=== PATIENT | female | born 1960 | race Caucasian/White ===

== ENCOUNTER 2024-01-23 16:05 | Emergency (ER) | payer MEDICARE, BC ==
[2024-01-23 16:35] VITALS: BP 160/88; O2SAT 95
--- NOTE | 2024-01-23 16:51 | ED Physician Documentation ---
History of Present Illness - Stated complaint Stated Complaint: FALL - Chief complaint Chief Complaint: Trauma Abd - History obtained from History obtained from: Patient - Additonal information Additional information: 63-year-old female presents after fall. Patient was at the grocery store, and was grabbing a 6 pack of beer, and then turned to go to the register and tripped over some inventory that was on the floor that she did not previously see. She fell on to the floor, onto the beer bottles which pushed into her right ribs. All the bottles broke but she did not sustain any serious lacerations. She thinks she bumped to the right Side of the face on the ground but had no loss of consciousness, is not on any anticoagulation. She also believes she strained her lower back when she fell. She does have periodic sciatica in this area then does not feel like it is exacerbated that but does have some strain in the right lower back. She is on buprenorphine at home, for chronic pain issues,And declines any other narcotics or Toradol at this time. She would be interested in a muscle relaxer. Review of Systems Constitutional: reports: Reviewed and negative Cardiac: reports: Reviewed and negative Respiratory: reports: Reviewed and negative, Other (rib pain) GI: reports: Reviewed and negative Musculoskeletal: reports: Back pain PD PAST MEDICAL HISTORY - Past Medical History Past Medical History: Yes Cardiovascular: Hypertension Psych: Depression, Anxiety - Past Surgical History Past Surgical History: Yes General: Cholecystectomy Ortho: Other - Present Medications Home Medications: Ambulatory Orders Medication Instructions Recorded Confirmed Cyclobenzaprine [Flexeril] 10 mg PO TID PRN #20 tablet 01/23/24 - Allergies Allergies/Adverse Reactions: Allergies Allergy/AdvReac Type Severity Reaction Status Date / Time No Known Drug Allergies Allergy Verified 01/23/24 16:25 - Social History Does the pt smoke?: No Smoking Status: Never smoker Does the pt drink ETOH?: Yes Does the pt have substance abuse?: No - Immunizations Immunizations are current?: Yes PD ED PE NORMAL - Vitals Vital signs reviewed: Yes - General General: Alert and oriented X 3, No acute distress, Well developed/nourished - HEENT HEENT: Atraumatic - Neck Neck: No bony TTP, C-Spine cleared by NEXUS criteria - Cardiac Cardiac: RRR, No murmur - Respiratory Respiratory: No respiratory distress, Clear bilaterally, Other (right anterior lower rib ttp w/o crepitus) - Abdomen Abdomen: Normal bowel sounds, Soft, Non tender, Non distended - Back Back: No spinal TTP, Other (left lumbosacral ttp) - Derm Derm: Normal color, Warm and dry, No rash - Extremities Extremities: No deformity, Normal ROM s pain - Neuro Neuro: Alert and oriented X 3 Eye Opening: Spontaneous Motor: Obeys Commands Verbal: Oriented GCS Score: 15 - Psych Psych: Normal mood, Normal affect Results - Vitals Vitals: Vital Signs - 24 hr 01/23/24 16:25 Temperature 36.8 C Heart Rate 77 Respiratory 16 Rate Blood Pressure 160/88 H O2 Saturation 95 Oxygen O2 Source Room air - Rads (name of study) No standard instances Relevant Findings:: Final report received PD Medical Decision Making - ED course Complexity details: reviewed results, re-evaluated patient, considered differential, d/w patient ED course: 63-year-old female presented after a fall at the grocery store as described in HPI. The patient fell face forward after tripping on some inventory and landed onto a sixpack bottles of beer that she was caring, And presented with the right rib pain as described in HPI. She also had right lower back and buttocks pain and right facial contusion. The patient is well-appearing here on physical exam, nontoxic, afebrile in no acute distress. She does not have any signs of cauda equina syndrome and I suspect her low back pain is from a strained. She has her anterior right rib pain and there is concern for contusion versus fracture. X-ray is negative advised patient that there still may be a small fracture but in any case treatment was supportive including pain control, cool compress, self splinting. The patient does have a facial contusion but no signs of bony facial injury And did not otherwise hit her head, is not on anticoagulation and does not require CT imaging at this time. Recommended cool compress, Tylenol and ibuprofen as needed, and will discharge with as needed Flexeril. Return precaution reviewed if any new or worsening symptoms. Departure - Departure Disposition: Home, Self Care Clinical Impression: Contusion of rib on right side Qualifiers: Encounter type: initial encounter Qualified Code(s): S20.211A - Contusion of right front wall of thorax, initial encounter Facial contusion Qualifiers: Encounter type: initial encounter Qualified Code(s): S00.83XA - Contusion of other part of head, initial encounter Low back strain Qualifiers: Encounter type: initial encounter Qualified Code(s): S39.012A - Strain of muscle, fascia and tendon of lower back, initial encounter Condition: Good Instructions: ED Contusion Chest Wall Prescriptions: Cyclobenzaprine [Flexeril] 10 mg PO TID PRN #20 tablet PRN Reason: Spasms Comments: You do not have any obvious rib fractures, but sometimes small fractures are difficult to see. The treatment for fracture or rib contusion is supportive, however, including ice, ibuprofen, and tylenol. For your facial contusion, recommended ice pack, and your lower back strain, ice or heat whichever feels most comfortable. Anticipate you will be quite sore tomorrow but should have improvement over the next few days. The rib pain can take several weeks to get completely better. I have prescribed Flexeril to use as needed., Please keep in mind that this will make you quite drowsy and use cautiously. Do not drive or take with other sedating medicine Forms: PCP List Discharge Date/Time: 01/23/24 18:01
--- NOTE | 2024-01-23 17:34 | XRAY Report ---
PROCEDURE: Ribs w/PA Chest 3+V RT INDICATIONS: fall, rib injury TECHNIQUE: 2 views of the ribs were acquired, along with a single view chest. COMPARISON: None. FINDINGS: Surgical changes and devices: None. Bones and chest wall: No displaced fracture or dislocation. Lungs and pleura: Low lung volumes. No dense airspace disease or pleural effusion Mediastinum: Normal heart size IMPRESSION: No acute radiographic abnormality. If there is high concern for occult injury, consider repeat radiography or cross-sectional imaging. Reviewed by: Flex Ramos MD on 01/23/2024 5:33 PM PDT Approved by: Flex Ramos MD on 01/23/2024 5:33 PM PDT Station ID: [id number]
== END 2024-01-23 18:01 | disposition home or self-care (01) ==
LOC: ED 16:05
DX: S39.012A Strain of muscle, fascia and tendon of lower back, initial encounter (principal); S20.211A Contusion of right front wall of thorax, initial encounter; S00.83XA Contusion of other part of head, initial encounter; W18.39XA Other fall on same level, initial encounter; Y92.512 Supermarket, store or market as the place of occurrence of the external cause
CPT/HCPCS: 99283

== ENCOUNTER 2024-02-29 15:50 | Outpatient (CLI) | payer MEDICARE, BC ==
[2024-02-29 16:00] LABS: BASOPHILS # (AUTO) 0.1 10^3/uL (0.0-0.1); BASOPHILS % (AUTO) 0.8 %; EOSINOPHILS # (AUTO) 0.3 10^3/uL (0.0-0.7); EOSINOPHILS % (AUTO) 3.3 %; HCT - HEMATOCRIT 38.9 % (37.0-47.0); HGB - HEMOGLOBIN 13.2 g/dL (12.0-16.0); LYMPHOCYTES # (AUTO) 3.2 10^3/uL (1.5-3.5); LYMPHOCYTES % (AUTO) 41.9 %; MEAN CORPUSCULAR HEMOGLOBIN 30.2 pg (27.0-31.0); MEAN CORPUSCULAR HGB CONC 33.9 g/dL (32.0-36.0); MEAN PLATELET VOLUME 9.2 fL (7.9-10.8); MONOCYTES # (AUTO) 0.7 10^3/uL (0.0-1.0); MONOCYTES % (AUTO) 8.8 %; NEUTROPHILS # (AUTO) 3.4 10^3/uL (1.5-6.6); NEUTROPHILS % (AUTO) 44.9 %; PLT - PLATELET COUNT 344 10^3/uL (130-450); RED BLOOD COUNT 4.37 10^6/uL (4.20-5.40); WHITE BLOOD COUNT 7.6 x10^3/uL (4.8-10.8)
--- NOTE | 2024-03-03 02:44 | XRAY Report ---
PROCEDURE: Chest 2V INDICATIONS: AXILLARY LYMPHADENOPATHY TECHNIQUE: 2 views of the chest were acquired. COMPARISON: 01/23/2024. FINDINGS: Surgical changes and devices: None. Lungs and pleura: No pleural effusions or pneumothorax. Lungs are clear. Mediastinum: Mediastinal contours appear normal. Heart size is normal. Bones and chest wall: No suspicious bony lesions. Overlying soft tissues appear unremarkable. IMPRESSION: No acute cardiopulmonary process. Reviewed by: Hi Ma MD on 03/03/2024 2:43 AM PDT Approved by: Hi Ma MD on 03/03/2024 2:43 AM PDT Station ID: [id number]
== END 2024-02-29 15:51 | disposition home or self-care (01) ==
LOC: DI 15:50
PROVIDERS: ATTEND Physician Assistant
DX: R59.0 Localized enlarged lymph nodes (principal)
CPT/HCPCS: 36415; 85025